=== PATIENT | female | born 2000 | race Caucasian/White ===

== ENCOUNTER 2023-05-29 13:12 | Outpatient (AMB) | payer OTHER, SELFPAY ==
[2023-05-29 13:28] VITALS: BP 116/72; PULSE 110; TEMP 36.9; O2SAT 99; BMI 32.2
--- NOTE | 2023-05-29 13:28 | MHC.OFFWIV ---
Intake Vital Signs 05/29/23 13:28 Height 5 ft 2 in Weight 176 lb BMI 32.2 BP 116/72 Blood Pressure Location Lt brachial Position Sitting Pulse 110 H Pulse Source Pulse Oximeter Temp 98.5 F Temp Source Temporal Artery Scan Pulse Oximetry (%) 99 Oxygen Delivery Method Room Air Intake Visit Reasons: EP UTI Intake Note: pt is here today for UTI started today Patient Tobacco Use Status: Never used Tobacco Allergies No Known Allergies Allergy (Verified 05/29/23 13:39) Do you need a note to return to daycare/school/sports/work: No HPI HPI Comments History of Present Illness Details Patient presents to urgent care today for sick visit Endorses burning with urination, increased frequency and suprapubic abdominal pain. Denies back pain, fevers, vaginal discharge or vomiting. LMP 1 week ago, not sexually active. Denies chance of . Denies concern for STIs. PFSH Social History Patient Tobacco Use Status: Never used Tobacco Review of Systems Const All systems reviewed & are unremarkable except as noted in HPI and below Physical Exam Vital Signs: Last Vital Signs Temp 98.5 F 05/29/23 13:28 Pulse 110 H 05/29/23 13:28 BP 116/72 05/29/23 13:28 Pulse Ox 99 05/29/23 13:28 Oxygen Delivery Method Room Air 05/29/23 13:28 BMI result Body Mass Index 32.2 General: awake, alert, oriented. Answers questions appropriately. Fully engaged in examination. Skin: warm, dry, intact HEENT: Normocephalic. Hearing intact. Cardiac: External chest normal in appearance. Respiratory: No cough, audible wheezing or stridor. Abdomen: without gross distension. No guarding. Nontender to palpation. No CVA tenderness MS: No obvious swelling or deformities. Neurological: Oriented to person, place, time and situation. Thought process intact. No gait abnormalities appreciated. Psychiatric: Appropriate mood and affect. Good judgment and insight. Results AMB Urinalysis, Automated UA Leukoctes 500 [place]/uL Last Edit by Kathleen Quezada MA on 05/29/23 14:14 UA Nitrite Positive Last Edit by Kathleen Quezada MA on 05/29/23 14:14 UA Urobilinogen 0.2 mg/dL Last Edit by Kathleen Quezada MA on 05/29/23 14:14 UA Protein 100 mg/dL Last Edit by Kathleen Quezada MA on 05/29/23 14:14 UA pH 6.0 Last Edit by Kathleen Quezada MA on 05/29/23 14:14 UA Blood 200 Mark/uL Last Edit by Kathleen Quezada MA on 05/29/23 14:14 UA Specific [place] 1.025 Last Edit by Kathleen Quezada MA on 05/29/23 14:14 UA Ketone Positive Last Edit by Kathleen Quezada MA on 05/29/23 14:14 UA Bilirubin 0 mg/dL Last Edit by Kathleen Quezada MA on 05/29/23 14:14 UA Glucose 0 mg/dL Last Edit by Kathleen Quezada MA on 05/29/23 14:14 Results Reviewed Results Reviewed: UA reviewed: 3+ leukocytes, 2+ protein, 3+ blood. Positive ketones Assessment & Plan Assessment & Plan (1) UTI (urinary tract infection): Code(s): N39.0 - Urinary tract infection, site not specified Plan Take antibiotics and Pyridium as directed. Increase fluid intake. Return to clinic for new fever or back pain or if symptoms persist. Medications: New nitrofurantoin monohyd/m-cryst 100 mg (Macrobid) must administer with a meal/food 100 mg PO Q12H 10 caps 0RF 5 days phenazopyridine (Pyridium) 100 mg PO TID PRN 9 tabs 0RF pain 3 days Coding Level of Care Code Est Pt Level 3 (18671) Diagnoses UTI (urinary tract infection) N39.0
== END 2023-05-29 13:46 | disposition home or self-care (01) ==
PROVIDERS: PCP Pediatrics; Visit Provider Registered Nurse Emergency
DX: N39.0 Urinary tract infection, site not specified (principal)
CPT/HCPCS: 99213

== ENCOUNTER 2024-01-17 09:27 | Outpatient (REF) | payer OTHER, SELFPAY ==
[2024-01-17 14:13] LABS: Influenza A PCR NEGATIVE (Negative); Influenza B PCR NEGATIVE (Negative); Resp Syncy Virus RNA Qual PCR NEGATIVE (Negative); SARS COV2 PCR INHOUSE NEGATIVE (Negative)
== END 2024-01-17 09:28 | disposition home or self-care (01) ==
LOC: HO.LAB 09:27
PROVIDERS: PCP Pediatrics; Visit Provider Physician Assistant
DX: J06.9 Acute upper respiratory infection, unspecified (principal); R09.89 Other specified symptoms and signs involving the circulatory and respiratory systems; R00.0 Tachycardia, unspecified; R59.1 Generalized enlarged lymph nodes
CPT/HCPCS: 0241U; 99202

== ENCOUNTER 2024-01-17 09:27 | Outpatient (AMB) | payer OTHER, SELFPAY ==
--- NOTE | 2024-01-17 09:55 | AM.OFFWIN_ITS ---
Intake Vital Signs 01/17/24 10:01 Height 5 ft 2 in Weight 174 lb BMI 31.8 BP 122/80 Blood Pressure Location Rt brachial Position Sitting Pulse 108 H Pulse Source Pulse Oximeter Temp 98.3 F Temp Source Oral Pulse Oximetry (%) 99 Oxygen Delivery Method Room Air Intake Visit Reasons: EP-sore throat, dizziness, headaches Intake Note: Patient here for sore throat, headaches and dizziness that started monday. Patient Tobacco Use Status: Never used Tobacco Allergies No Known Allergies Allergy (Verified 01/17/24 10:02) Do you need a note to return to daycare/school/sports/work: Yes HPI HPI Comments History of Present Illness Details History of Present Illness The patient is a 23-year-old female presenting with symptoms consistent with an Acute Viral Infection. She reports experiencing sore throat, dizziness, and headaches beginning three days ago on Monday. She notes a sensation of fatigue throughout her body but denies shortness of breath, ear pain, fevers, or cough. Additional complaints include night terrors and a feeling of anxiety which may be contributing to her elevated heart rate. The patient also describes noticing a small, swollen lymph node on her neck which she believes might be related to her current symptoms. She has been managing the symptoms with cough drops, Tylenol, increased fluid intake, and Gatorade, although the headaches are only mildly alleviated with Tylenol. A recent interaction with a potentially sick family member, who exhibited flu-like symptoms, was noted. Physical Exam General: Cooperative, healthy appearing, comfortable and no acute distress Orientation/consciousness: Patient oriented x3 Limitations: No limitations Head: Normal to inspection Ears: Hearing grossly normal bilaterally, external ears normal and TM's normal bilaterally Nose: Normal external nose present, Normal nares present and No nasal discharge present Face and sinus: Normal facial exam and Yes sinuses nontender Mouth: Normal oral and palatal mucosa present and moist mucous membranes Throat: Yes tonsils normal, Yes uvula midline. Posterior oropharynx erythema Eyes: Appearance normal, both eyes and all related structures Neck: Swollen lymph node present Respirtory: Clear to auscultation bilaterally. Normal respiratory effort, able to speak in complete sentences, no respiratory distress, not tachypneic, no tripod positioning and no use of accessory muscles Cardiovascular: Regular rate and rhythm. Heart rate elevated at 108-109 bpm. No rmal S1 and S2 Skin: No rashes or lesions noted Neuro: Patient oriented x3 Extremities: Normal to inspection and Yes no clubbing, cyanosis or edema PFSH Social History Patient Tobacco Use Status: Never used Tobacco Review of Systems Const All systems reviewed & are unremarkable except as noted in HPI and below Physical Exam Vital Signs: Last Vital Signs Temp 98.3 F 01/17/24 10:01 Pulse 108 H 01/17/24 10:01 BP 122/80 01/17/24 10:01 Pulse Ox 99 01/17/24 10:01 Oxygen Delivery Method Room Air 01/17/24 10:01 BMI result Body Mass Index 31.8 Assessment & Plan Assessment & Plan (1) Viral URI: Code(s): J06.9 - Acute upper respiratory infection, unspecified Plan: Plan 1. Acute Viral Upper Respiratory Infection: Given the symptoms and negative rapid strep test and no exudates on exam, this appears to be viral in origin. Symptomatic management is advised, including continued use of Tylenol for headache relief and increased fluid intake. Tested for influenza, COVID-19, and RSV. Advise monitoring of symptoms and treating with OTC meds. provided work note. 2. Tachycardia and Anxiety: Discussed the potential for anxiety to be contributing to the patient's tachycardia. Advised monitoring heart rate with a personal device, such as an Apple Watch, and to present to the ED if heart rate remains elevated significantly over the coming days. Suggested implementing stress-reducing practices. Monitor fluid intake to ensure adequate hydration, which may contribute to the elevated heart rate. Follow up with primary care if symptoms persist. 3. Lymphadenopathy: Recommended monitoring the swollen lymph node, advising that it should reduce once the viral infection resolves. Instructed to follow up with primary care if the lymph node remains swollen beyond two weeks for further evaluation, which may include an ultrasound if needed. Patient was informed and verbally consented to the use of an ambient scribe for clinic note documentation during this visit (2) Tachycardia: Code(s): R00.0 - Tachycardia, unspecified Plan: as above (3) Lymphadenopathy: Code(s): R59.1 - Generalized enlarged lymph nodes Plan: as above Coding Level of Care Code New Pt Level 4 (60662) Diagnoses Viral URI J06.9 Tachycardia R00.0 Lymphadenopathy R59.1
[2024-01-17 10:01] VITALS: BP 122/80; PULSE 108; TEMP 36.8; O2SAT 99; BMI 31.8
== END 2024-01-17 11:35 | disposition home or self-care (01) ==
PROVIDERS: PCP Pediatrics; Visit Provider Physician Assistant
DX: J06.9 Acute upper respiratory infection, unspecified (principal); R00.0 Tachycardia, unspecified; R59.1 Generalized enlarged lymph nodes